=== PATIENT | male | born 1955 | race Caucasian/White ===

== ENCOUNTER 2025-04-28 13:47 | Emergency (ER) | payer MEDICARE, SELFPAY ==
[2025-04-28 13:49] VITALS: BP 132/77; PULSE 56; RESP 18; TEMP 36.4; O2SAT 98; BMI 23.8
[2025-04-28 14:48] VITALS: BP 138/74; PULSE 64; RESP 20; O2SAT 97
[2025-04-28 15:00] VITALS: BP 138/74; PULSE 64; RESP 20; O2SAT 97
--- NOTE | 2025-04-28 15:15 | EX.ED.GENINJ ---
HPI History of Present Illness Chief Complaint: Head Injury Informant: patient Onset/Context/Timing Onset: Days (3) Mechanism/Context: Blunt Injury and Fall Quality of Pain: Aching Location: Right occipital scalp Worsened by: Nothing Relieved by: Nothing Associated Symptoms Associated Symptoms: Negative for Parasthesias, Weakness, Loss of function, Inability to ambulate, Loss of consciousness or Amnesia Narrative Narrative: Patient presents with a head injury that occurred 3 days ago. Patient states he tripped over the dog leashes and hit the right occipital area of his head. Patient denies any loss of consciousness. Patient denies any paresthesias or weakness. Patient describes his pain as aching. Patient states it is mainly over the right occipital area. Patient denies any radiation of the pain into his neck. Patient denies any nausea or vomiting. Patient denies any visual changes. [facility] Medical History (Updated 04/28/25 @ 15:[address] Kurtis Puentes, DO) Atrial fibrillation Asthma Medical History no medical history Home Medications ?Medication ?Instructions ?Recorded ?Last Taken ?Type Fluticasone 220 Mcg [Flovent 220 2 puff inhalation BID PRN Dyspnea 11/28/13 Unknown History Mcg] albuterol sulfate 90 mcg/actuation 2 puff inhalation Q4H PRN PRN 11/28/13 Unknown History aerosol inhaler (Ventolin HFA) Dyspnea aspirin 81 mg chewable tablet 81 mg PO DAILY@0800 11/28/13 Unknown History ferrous sulfate 325 mg (65 mg 325 mg PO DAILY@0800 11/28/13 Unknown History iron) tablet glyburide 2.5 mg tablet 2.5 mg PO DAILY@0800 11/28/13 Unknown History lisinopril 10 mg tablet 10 mg PO DAILY 11/28/13 12/01/13 History 2200 metformin 500 mg tablet 500 mg PO BIDCM 11/28/13 Unknown History montelukast 10 mg tablet 10 mg PO DAILY 11/28/13 Unknown History niacin 250 mg tablet,extended 250 mg PO DAILY 11/28/13 Unknown History release (Slo-Niacin) oxycodone-acetaminophen 5 mg-325 1 tab PO Q4H PRN PRN Pain ##30 12/02/13 Unknown Rx mg tablet Allergy/AdvReac Type Severity Reaction Status Date / Time morphine AdvReac Nausea Verified 04/28/25 13:52 Family History no significant family his Surgical History no surgical history no surgical history Social History Smoking Status: Never smoker ROS ROS ED Constitutional Constitutional ED: Denies chills or fever(s) Eyes Eyes: Denies blurry vision or change in vision ENT ENT ED: Denies rhinorrhea or sore throat Cardiovascular Cardiovascular: Denies chest pain or palpitations Respiratory/Chest Respiratory/Chest: Denies cough or dyspnea Gastrointestinal Gastrointestinal: Denies nausea or vomiting Genitourinary Genitourinary ED: Denies dysuria or hematuria Musculoskeletal Musculoskeletal: Denies back pain or neck pain Integumentary Denies abscess or rash Neurologic Neurologic: Reports headache(s); Denies weakness Allergic/Immunologic Allergic/Immunologic ED: Denies mouth swelling or urticaria EXAM Physical Exam Const Vital Signs: 04/28/25 13:49 04/28/25 14:36 04/28/25 14:48 Temperature 97.6 F L Temperature Source Oral Pulse Rate 56 L 64 Respiratory Rate 18 20 H Respiratory Effort Normal Non-Labored Blood Pressure 132/77 H 138/74 H Blood Pressure Mean 95 95 Pulse Ox 98 97 Oxygen Delivery Method Room Air Room Air Room Air 04/28/25 15:00 04/28/25 16:00 Temperature Temperature Source Pulse Rate 64 58 L Respiratory Rate 20 H 14 Respiratory Effort Blood Pressure 138/74 H 133/76 H Blood Pressure Mean 95 95 Pulse Ox 97 98 Oxygen Delivery Method Room Air Positive well nourished and well developed Constitutional Narrative: BMI is 23.8. General Appearance ED: well developed and NAD HEENT HEENT Narrative: There is some mild tenderness, edema, and ecchymosis over the right occipital scalp. There is no bony crepitance or step-off noted. There is no tenderness over the cervical spine. There are no lacerations noted. Eyes PERRL and EOMs intact bilaterally Neck full ROM Resp normal respiratory effort and clear to auscultation bilaterally Cardio Rate: regular rate Rhythm: abnormal rhythm irregularly irregular GI non-tender and non-distended Palpation: soft Extremity normal to inspection and full ROM Neuro oriented x3, CN's II-XII intact bilaterally, moves all extremities, no focal motor deficits and no sensory deficits noted Kem Coma Scale: document GCS findings Spontaneous Obeys Commands Oriented 15 Sensorium / Orientation: alert Motor Exam: strength 5/5 throughout Psych mental status grossly normal and thought process normal MDM MDM MDM Narrative Medical decision making narrative: Differential diagnosis includes intracranial bleeding, closed head injury, and concussion. CT scan of the brain will be obtained to assess for intracranial bleeding. Nursing triage protocol EKG was obtained to assess for cardiac dysrhythmia and cardiac ischemia. Radiography Diagnostic Testing: Clinical Impression(s) from Imaging Studies Brain CT 04/28/25 15:35 IMPRESSION: No intracranial hemorrhage or large territorial infarct. 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 Reading Location: [facility] [place] CT scan of the brain was obtained. There is no acute intracranial abnormality. This was interpreted by the radiologist and was also independently reviewed by myself. EKG Initial EKG: Attestation: I personally reviewed and interpreted this EKG as follows: Interpretation: No Acute Injury Pattern and Atrial Fibrillation (69) Comments: EKG was obtained. On my independent interpretation, it shows atrial fibrillation with a rate of 69. QRS interval was normal at 86 ms. QTc interval was normal at 415 ms. There is left axis deviation at -24. There are no acute ST or T wave changes noted. Prior EKG tracings: available for review Prior: Changed (Compared to EKG dated 11/28/2013, the atrial fibrillation is new. (The patient states he has a history of A-fib however.)) Treatment and Re-Evaluation Narrative: Patient was advised of his findings. Patient instructed to use ice to the area. Patient was instructed to take Tylenol as needed for pain. Patient was instructed to follow-up with his primary care physician in 5 to 7 days. Patient was instructed to continue his medications as previously prescribed. Patient understood and was agreeable with the plan. All questions were answered. Discharge Plan Triage Chief Complaint: Head Injury ED Provider: Kurtis Puentes Dx/Rx/DC Orders Clinical Impression: Closed head injury, Fall, Atrial fibrillation Instructions: ED Head Injury (Adult) Prescriptions: No Action metformin 500 MG tablet 500 mg PO BIDCM glyburide 2.5 MG tablet 2.5 mg PO DAILY@0800 ferrous sulfate 325 MG tablet 325 mg PO DAILY@0800 lisinopril 10 MG tablet 10 mg PO DAILY niacin [Slo-Niacin] 250 MG tablet extended release 250 mg PO DAILY aspirin 81 MG tablet,chewable 81 mg PO DAILY@0800 montelukast 10 MG tablet 10 mg PO DAILY albuterol sulfate [Ventolin HFA] 1 INHALER inhaler 2 puff inhalation Q4H PRN PRN (Reason: Dyspnea) Fluticasone 220 Mcg [Flovent 220 Mcg] 1 INHALER inhaler 2 puff inhalation BID PRN (Reason: Dyspnea) oxycodone-acetaminophen 1 TABLET tablet 1 tab PO Q4H PRN PRN (Reason: Pain) Qty: 30 0RF Primary Care Provider: Sandra Lechuga Referrals: Sandra Lechuga MD [Primary Care Provider, Internal Medicine] - 5-7 Days Print Language: Latvian Disposition Disposition: Home, Self Care
--- NOTE | 2025-04-28 15:35 | CT_ITS ---
EXAM: BRAIN/HEAD WITHOUT CONTRAST CLINICAL HISTORY: 69 y/o M with HEAD INJURY. COMPARISON: None. TECHNIQUE: Routine CT imaging of the head without IV contrast. Additional multiplanar reformats were obtained. Dose reduction techniques were used including intermediate exposure control (AEC),iterative reconstruction technique, and/or mA and/or KV dose adjustments based on patient's size. FINDINGS: The ventricles, sulci and cisterns are mildly prominent, suggestive of brain parenchymal volume loss. There is no evidence of intracranial hemorrhage. There is no midline shift, mass effect, or extra-axial collection. The curtis and white matter differentiation in the bilateral cerebral hemispheres is maintained, refuting an acute, large territorial infarct. There are mild, diffuse, symmetrical, periventricular and subcortical white matter lucencies, a nonspecific finding, which may represent sequela of small vessel disease in a patient of this age. The orbits, visualized paranasal sinuses and mastoids are unremarkable. No depressed skull fractures are identified. CT/Brain/Head without Contrast IMPRESSION: No intracranial hemorrhage or large territorial infarct. 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 Reading Location: [facility]
[2025-04-28 16:00] VITALS: BP 133/76; PULSE 58; RESP 14; O2SAT 98
[2025-04-28 16:31] VITALS: BP 133/76; PULSE 58; RESP 14; TEMP 36.4; O2SAT 98
== END 2025-04-28 16:37 | disposition home or self-care (01) ==
PROVIDERS: Emergency Provider Emergency Medicine; PCP Internal Medicine; Visit Provider Emergency Medicine
DX: S09.90XA Unspecified injury of head, initial encounter (principal); I48.91 Unspecified atrial fibrillation; J45.909 Unspecified asthma, uncomplicated; R51.9 Headache, unspecified; W18.09XA Striking against other object with subsequent fall, initial encounter; Y93.K1 Activity, walking an animal
CPT/HCPCS: 70450; 93005; 99282